=== PATIENT | female | born 1960 | race Caucasian/White ===

== ENCOUNTER 2017-04-08 15:36 | Emergency (ER) | payer OTHER ==
[~2017-04-08] VITALS: Ht 162.6 cm; Wt 87.6 kg
[~2017-04-08 15:36] MED LIST: ASPIR 8181 M1 PO; ATORVASTATIN CA40 MG PO; CIPRO500 MG PO; METOPROLOL TART25 MG PO; METOPROLOL TART50 MG PO; NORCO 5/3251 TABLET PO; OXYCODONE HCL10 MG PO; OXYCODONE HCL5 MG PO; PERCOCET 10/1 TABLET PO; PERCOCET 5/31 TABLET PO; PLAVIX75 MG PO; ROXICODONE5 MG PO; TYLENOL WITH C1 EACH PO; VOLTAREN75 MG PO
[2017-04-08 16:06] LABS: HEMATOCRIT 46.5 % (36.0-46.0); MCH 29.9 PG (29.0-34.0); MCHC 32.7 G/DL (30.0-36.0); MCV 91.5 FL (83-99); RBC DIS.WIDTH-CV 12.4 % (11.8-14.6); RBC DIS.WIDTH-SD 41.5 % (39-53); RED BLOOD COUNT 5.08 M/uL (3.80-5.20); WHITE BLOOD COUNT 6.9 K/uL (4.1-10.2)
[2017-04-08 16:15] LABS: CHLORIDE 106 mEq/L (99-109); POTASSIUM 3.9 mEq/L (3.7-5.4); SODIUM 141 mEq/L (136-147)
[2017-04-08 16:16] LABS: GLUCOSE 86 mg/dL (70-99)
[2017-04-08 16:18] LABS: ANION GAP 12 MEQ/L (2-14)
[2017-04-08 16:20] LABS: GFR ESTIMATE (CALCULATED) > 59 mL/min/
[2017-04-08 16:21] LABS: UREA NITROGEN (BUN) 8 mg/dL (9-23)
[2017-04-08 16:26] LABS: TROP-I INTERPRETATION NEGATIVE; TROPONIN-I < 0.01 ng/mL (0.0-0.30)
[2017-04-08 16:28] LABS: MEAN PLAT.VOLUME 10.8 uM^3 (9.5-12.4); PLATELET COUNT 308 K/uL (156-360)
[2017-04-08 18:38] LABS: TROP-I INTERPRETATION NEGATIVE; TROPONIN-I < 0.01 ng/mL (0.0-0.30)
[2017-04-08 18:49] VITALS: BP 154/95
== END 2017-04-08 18:54 | disposition home or self-care (01) ==
LOC: EME 15:36 → EXP 15:36
PROVIDERS: Physician Assistant Medical
DX: M54.12 Radiculopathy, cervical region (principal); E78.5 Hyperlipidemia, unspecified; I10 Essential (primary) hypertension; I25.2 Old myocardial infarction; Z95.1 Presence of aortocoronary bypass graft; Z79.82 Long term (current) use of aspirin; F17.200 Nicotine dependence, unspecified, uncomplicated
CPT/HCPCS: 72040; 80048; 84484; 85027; 93005; 99281; 99285; J1885

== ENCOUNTER 2017-05-20 19:49 | Inpatient (IN) | payer OTHER ==
[~2017-05-20] VITALS: Ht 162.6 cm; Wt 86.8 kg
[2017-05-20 20:08] LABS: HEMATOCRIT 43.1 % (36.0-46.0); MCHC 33.9 G/DL (30.0-36.0); MCV 88.7 FL (83-99); MEAN PLAT.VOLUME 11.2 uM^3 (9.5-12.4); PLATELET COUNT 345 K/uL (156-360); RBC DIS.WIDTH-CV 12.5 % (11.8-14.6); RED BLOOD COUNT 4.86 M/uL (3.80-5.20); WHITE BLOOD COUNT 9.8 K/uL (4.1-10.2)
[2017-05-20 20:14] LABS: INTER. NORMALIZED RATIO 0.9; PROTHROMBIN TIME 10.2 SEC (10.2-12.9)
[2017-05-20 20:16] LABS: PTT 27.7 SEC (25-37)
[2017-05-20 20:23] LABS: AMYLASE 26 IU/L (1-118); ANION GAP 12 MEQ/L (2-14); CHLORIDE 105 MEQ/L (99-109); POTASSIUM 3.7 MEQ/L (3.7-5.4); SAMPLE HEMOLYSIS CHECK 0; SAMPLE ICTERIC CHECK 0; SAMPLE LIPEMIA CHECK 0; SODIUM 140 MEQ/L (136-147)
[2017-05-20 20:28] LABS: TROP-I INTERPRETATION NEGATIVE; TROPONIN-I < 0.01 ng/mL (0.0-0.30)
[2017-05-20 20:31] LABS: GFR ESTIMATE (CALCULATED) > 59 mL/min/; GLUCOSE 132 mg/dL (70-99); LIPASE 19 U/L (1.0-51.0); SERUM ETHYL ALCOHOL < 10 mg/dL; UREA NITROGEN (BUN) 9 mg/dL (9-23)
[2017-05-20 20:57] LABS: ABS NEUTROPHIL COUNT 5.4; ANISOCYTOSIS 1+; ATYPICAL LYMPHOCYTE 0.9 %; BAND NEUTROPHILS 10.7 % (0-8.0); BASOPHILS 1.8 %; BURR CELLS 1+; EOSINOPHIL ABS CT 0; GIANT PLATELETS 2+; MICROCYTOSIS 1+; PLAT.SUFFICIENCY ADEQUATE; POLYCHROMASIA 1+; SEG.NEUTROPHILS 44.7 % (46.0-76.0)
[2017-05-20 22:10] VITALS: BP 88/58
[2017-05-20 22:15] VITALS: BP 94/71
[2017-05-20 22:30] VITALS: BP 95/58
[2017-05-20 22:43] VITALS: BP 88/58
[2017-05-20 22:45] VITALS: BP 101/64
[2017-05-20 23:00] VITALS: BP 116/73
[2017-05-20 23:46] LABS: METH RESISTANT S AUREUS PCR NEGATIVE (NEGATIVE)
[2017-05-20 23:50] LABS: PROBE CHECK PASS; SPECIMEN PROCESSING CONTROL PASS
[2017-05-21] VITALS (13 sets, daily range): BP systolic 94–136; BP diastolic 58–101
[2017-05-21 05:23] LABS: BASOPHIL COUNT 0.1 K/uL (0-0.1); EOSINOPHIL (%) 0.1 % (0-5); HEMATOCRIT 39.6 % (36.0-46.0); IMMATURE GRANULOCYTE (%) 0.2 % (0.0-0.7); INSTRUMENT ABS NEUTROPHIL CT 7.1 K/uL; LYMPHOCYTE COUNT 1.9 K/uL (1.0-2.8); MCHC 34.6 G/DL (30.0-36.0); MCV 89.6 FL (83-99); MEAN PLAT.VOLUME 11.7 uM^3 (9.5-12.4); MONOCYTE COUNT 0.7 K/uL (0-0.8); NEUTROPHIL (%) 72.9 % (45-76); NEUTROPHIL COUNT 7.1 K/uL (1.8-6.4); PLATELET COUNT 280 K/uL (156-360); RBC DIS.WIDTH-CV 12.6 % (11.8-14.6); RBC DIS.WIDTH-SD 41.2 % (39-53); RED BLOOD COUNT 4.42 M/uL (3.80-5.20); WHITE BLOOD COUNT 9.7 K/uL (4.1-10.2)
[2017-05-21 05:37] LABS: TROP-I INTERPRETATION POSITIVE; TROPONIN-I 23.66 ng/mL (0.0-0.30)
[2017-05-21 05:47] LABS: ANION GAP 8 MEQ/L (2-14); CHLORIDE 109 MEQ/L (99-109); GFR ESTIMATE (CALCULATED) > 59 mL/min/; GLUCOSE 107 mg/dL (70-99); POTASSIUM 4.6 MEQ/L (3.7-5.4); SAMPLE HEMOLYSIS CHECK 0; SAMPLE ICTERIC CHECK 0; SAMPLE LIPEMIA CHECK 0; SODIUM 140 MEQ/L (136-147); UREA NITROGEN (BUN) 9 mg/dL (9-23)
[2017-05-21 13:33] LABS: TROP-I INTERPRETATION POSITIVE; TROPONIN-I 14.72 ng/mL (0.0-0.30)
[2017-05-21 18:33] LABS: TROP-I INTERPRETATION POSITIVE
[2017-05-21 18:34] LABS: TROPONIN-I 13.37 ng/mL (0.0-0.30)
[2017-05-22] VITALS: BP 133/72
[2017-05-22 04:00] VITALS: BP 104/77
[2017-05-22 07:28] VITALS: BP 121/74
[2017-05-22 10:42] VITALS: BP 142/77
[2017-05-22] MEDS ORDERED: LO-DOSE ASPIRIN81 M1 PO (13:40)
[2017-05-22] MEDS ORDERED: LOSARTAN POTASS25 MG PO (13:44)
[2017-05-22] MEDS ORDERED: ATORVASTATIN CA80 MG PO (13:44)
[2017-05-22] MEDS ORDERED: LOPRESSOR25 MG PO (13:44)
[2017-05-22] MEDS ORDERED: BRILINTA90 MG PO (13:44)
== END 2017-05-22 14:12 | disposition home or self-care (01) | DRG 247 ==
LOC: EME → EDBD 19:49 → EME 19:49 → ENRESERV 20:19 → CATH 20:19 → 2SOUTH 20:20 → 4WEST 20:20 → ENRESERV 20:26 → 4WEST 22:11
PROVIDERS: Emergency Medicine; Internal Medicine Cardiovascular Disease
DX: I21.19 ST elevation (STEMI) myocardial infarction involving other coronary artery of inferior wall (principal); I25.10 Atherosclerotic heart disease of native coronary artery without angina pectoris; E78.00 Pure hypercholesterolemia, unspecified; F17.200 Nicotine dependence, unspecified, uncomplicated; I25.2 Old myocardial infarction; Z95.1 Presence of aortocoronary bypass graft
CPT/HCPCS: 80048; 81003; 82150; 83690; 84484; 85025; 85347; 85610; 85730; 86900; 86901; 87641; 93005; 93306; 99281; 99285; C1725; C1760; C1769; C1874; C1887; C1894; G0480; J0461; J1644; J2250; J2405; J3010; J7030; J7050